=== PATIENT | female | born 1985 | race Caucasian/White ===

== ENCOUNTER 2020-11-01 20:34 | Inpatient (IN) | payer OTHER ==
[~2020-11-01] VITALS: Ht 170.2 cm; Wt 70.3 kg
[2020-11-01] MEDS ORDERED: METOCLOPRAMIDE HCL 10 MG/2 ML VIAL ONE (22:13)
[2020-11-01 22:16] LABS: BASOPHILS % (AUTO) 0.4 % (0.0-2.0); EOSINOPHILS % (AUTO) 0.3 % (0.0-6.0); HEMATOCRIT 42 % (33-45); HEMOGLOBIN 13.9 g/dL (11.5-14.8); LYMPHOCYTES # (AUTO) 1.1 K/uL (0.8-4.8); LYMPHOCYTES % (AUTO) 20.9 % (20.0-44.0); MEAN CORPUSCULAR HGB CONC 33 g/dl (31.0-36.0); MEAN CORPUSCULAR VOLUME 89 fL (82-100); MONOCYTES # (AUTO) 0.3 K/uL (0.1-1.30); MONOCYTES % (AUTO) 6.2 % (2.0-12.0); NEUTROPHILS # (AUTO) 3.8 K/uL (1.8-8.9); NEUTROPHILS % (AUTO) 72.2 % (43.0-81.0); PLATELET COUNT (AUTO) 222 K/uL (150-450); RED BLOOD CELL COUNT(AUTO) 4.68 MIL/uL (4.0-5.2); WHITE BLOOD COUNT (AUTO) 5.3 K/uL (4.3-11.0)
[2020-11-01 22:23] LABS: CALCIUM, SERUM 8.8 mg/dL (8.5-10.1); CREATININE 0.7 mg/dL (0.6-1.3); POTASSIUM 3.3 mmol/L (3.5-5.1)
[2020-11-01] MEDS ORDERED: IV NS 0.9% 1,000 ML BAG IV ONE (22:30)
[2020-11-01] MEDS ORDERED: METOCLOPRAMIDE HCL 10 MG/2 ML VIAL IV ONE (22:30)
--- NOTE | 2020-11-01 22:57 | NUR ---
PATIENT CAME TO THE ER BED 11 BIB FATHER C/O TAKING 8 PLAQUENIL PILLS BY ACCIDENT. PATIENT WAS HAVING HEADACHE AROUND 1800 TODAY WHEN HER FATHER GAVE HER PLAQUENIL PILLS THAT WAS IN A ASPIRIN BOTTLE BECAUSE PATIENT IS VISITING THE FATHER FROM OUT OF TOWN AND PLACED PLAQUENIL PILLS FOR HER SJROGEN'S DISEASE. PATIENT IS ALERT AND ORIENTED x4. C/O NAUSEA AND HEADACHE. PATIENT HAD TRY TO STICK HER FINGERS DOWN HER THROAT IN ATTEMPTS TO VOMIT OUT THE PILLS. PATIENT IS BREATHING EVENLY AND UNLABORED ON ROOM AIR. CONNECTED TO THE BIOCHEMIST.
[2020-11-01] MEDS ORDERED: IV PREMIX D5 1/2NS + KCL 1,000 ML IV ONE ×2 (23:00→23:54)
--- NOTE | 2020-11-01 23:26 | NUR ---
CALLED NURSING PERFECT BIND MACHINE OPERATOR FOR MEDICATION.
--- NOTE | 2020-11-01 23:49 | NUR ---
RECEIVED MEDICATION FROM NURSING SPECIAL EVENTS FUNDRAISER.
[2020-11-02] MEDS ORDERED: ACETAMINOPHEN 325 MG TABLET PO PRN
[2020-11-02] MEDS ORDERED: ONDANSETRON HCL/PF 4 MG/2 ML VIAL IVP PRN
[2020-11-02] MEDS ORDERED: ZOLPIDEM TARTRATE 5 MG TABLET PO PRN
--- NOTE | 2020-11-02 01:18 | NUR ---
PATIENT IS AMBULATORY WITH A STEADY GAIT TO THE RESTROOM
--- NOTE | 2020-11-02 03:22 | NUR ---
PATIENT IS SLEEPING. EASILY AROUSABLE THROUGH VERBAL STIMULI. PATIENT IS BREATHING EVENLY AND UNLABORED ON ROOM AIR. CONNECTED TO THE MONITOR. SIDE RAILS ARE UP FOR SAFETY. CALL LIGHT IS WITHIN REACH. WILL CONTINUE TO MONITOR THE PATIENT FOR SAFETY.
--- NOTE | 2020-11-02 03:34 | NUR ---
SPOKE WITH POISON CONTROL. MONITOR PATIENT'S QRS, JUST MAKE SURE THEY ARE NOT WIDE. PER POISON CONTROL, RARE FOR PATIENT TO DEVELOP ISSUES AFTER FIRST FEW HOURS AFTER INGESTION OF HYDROXYCHLOROQUIN. PER POISON CONTROL, PATIENT IS OKAY FOR DISCHARGE. DR. JIMENEZ NOTIFIED. PT WILL REMAIN UNDER OBSERVATION.
--- NOTE | 2020-11-02 06:20 | NUR ---
[address] BED 2 IS THE ASSIGNED BED. REPORT MUST BE GIVEN AFTER SHIFT CHANGE.
[2020-11-02 07:19] LABS: BASOPHILS % (AUTO) 0.5 % (0.0-2.0); HEMATOCRIT 39 % (33-45); HEMOGLOBIN 12.8 g/dL (11.5-14.8); LYMPHOCYTES # (AUTO) 1.4 K/uL (0.8-4.8); LYMPHOCYTES % (AUTO) 33.1 % (20.0-44.0); MEAN CORPUSCULAR HGB CONC 33 g/dl (31.0-36.0); MEAN CORPUSCULAR VOLUME 90 fL (82-100); MONOCYTES # (AUTO) 0.4 K/uL (0.1-1.30); MONOCYTES % (AUTO) 9.3 % (2.0-12.0); NEUTROPHILS # (AUTO) 2.3 K/uL (1.8-8.9); NEUTROPHILS % (AUTO) 56.1 % (43.0-81.0); PLATELET COUNT (AUTO) 212 K/uL (150-450); RED BLOOD CELL COUNT(AUTO) 4.31 MIL/uL (4.0-5.2); WHITE BLOOD COUNT (AUTO) 4.2 K/uL (4.3-11.0)
[2020-11-02 07:23] VITALS: BP 106/79
--- NOTE | 2020-11-02 07:28 | NUR ---
REPORT GIVEN TO DARSHANA HOANG FOR ARJUN.
[2020-11-02 07:50] LABS: ALBUMIN 3.5 g/dL (3.4-5.0); BILIRUBIN,TOTAL 0.6 mg/dL (0.2-1.0); CALCIUM, SERUM 7.9 mg/dL (8.5-10.1); CREATININE 0.5 mg/dL (0.6-1.3); MAGNESIUM 2.1 mg/dL (1.8-2.4); PHOSPHORUS 3.3 mg/dL (2.5-4.9); TOTAL PROTEIN, SERUM 6.8 g/dL (6.4-8.2)
--- NOTE | 2020-11-02 07:57 | NUR ---
THE PATIENT IS TRANSFERED TO ASSIGNED ROOM IN STABLE CONDITON AND PER POLICY
--- NOTE | 2020-11-02 09:01 | NUR ---
Pt came from ER, refused to stay, refused to be admitted. Dr Arteaga arrived to see Patient, pt signed AMA form and left hospital safely.
== END 2020-11-02 08:00 | disposition left against medical advice (07) | DRG 918 ==
LOC: ER 20:37 → TELE 11-02 06:27
PROVIDERS: ADMIT Internal Medicine; ATTEND Internal Medicine
DX: T37.8X1A Poisoning by other specified systemic anti-infectives and antiparasitics, accidental (unintentional), initial encounter (principal); E87.1 Hypo-osmolality and hyponatremia; E87.2 Acidosis; Y92.009 Unspecified place in unspecified non-institutional (private) residence as the place of occurrence of the external cause; M35.00 Sjogren syndrome, unspecified; E87.6 Hypokalemia; R00.1 Bradycardia, unspecified; Z20.822 Contact with and (suspected) exposure to COVID-19; R40.2362 Coma scale, best motor response, obeys commands, at arrival to emergency department; R40.2142 Coma scale, eyes open, spontaneous, at arrival to emergency department; R40.2252 Coma scale, best verbal response, oriented, at arrival to emergency department
CPT/HCPCS: 36415; 80048-TC; 80053-TC; 83735-TC; 84100-TC; 85025-TC; 87081-TC; C9803; G0378; J2765; J3490; J7030